=== PATIENT | female | born 1940 | race Caucasian/White ===

== ENCOUNTER 2024-05-11 12:48 | Outpatient (NON) | payer MEDICARE, SELFPAY ==
--- OUTSIDE RECORDS SUMMARY | 2024-05-11 13:11 | XMS_ITS | Encounter Summary ---
Author Organization [facility] Address [address] [place] [address] Phone Care Team Providers Care Rejected Items Clerk Name Role Phone Cherelle Knapp PAC Primary Care Pro vider Markell Obregon MD Unavailable [phone] Reason for Visit * Reason Comments Medication Refill Encounter Details Date Type Department Care Team (Late st Contact Info) Description 01/16/2023 Refill [facility] - Internal Medicine - [place] [address] [place] [phone] Cherelle Knapp, IMTIAZ [address] [place] [address] Medication Refill Social History Tobacco Use Types Packs/Day Years Used Date Smoking Tobacco: Former Smokeless Tobacco: Never Comments:Quit 60 years ago Alcohol Use Standard Drinks/Week Comments Yes 0 (1 standard drink = 0.6 oz pur e alcohol) rare PHQ-2 Answer Date Recorded Total Score - Questions 1-9 0 10/2021 Education Answer Date Recorded What is the highest level of school you have completed or the highest degree you have received? 12th grade 08/11/2022 Sexually Active Control Partners Comments Never Comments No Sex and Gender Information Value Date Recorded Sex Assigned at Not on file Legal Sex Female 12:25 AM CDT Gender Identity Not on file Sexual Orientation Not on file Occupation Industry Job Start Date Job End Date Retired Not on file Not on file Not on file documented as of this encounter Miscellaneous Notes * Telephone Encounter - Paula Morgan RN - 01/17/2023 8:38 AM CST Medication failed the protocol, provider to review and approve the medication order if appropriate. Requested Prescriptions Pending Prescriptions Disp Refills pravastatin (PRAVACHOL) 40 MG Tablet [Pharmacy Med Name: PRAVASTATIN SODIUM 40 MG TAB] 90 Tablet 0 Sig: TAKE 1 TABLET BY MOUTH EVERY DAY IN THE EVENING [facility]mg CoA Reductase Inhibitors Protocol Failed - 01/16/2023 7:16 AM Failed - CMP in past 12 months SODIUM Date Value Ref Range Status 08/13/2022 142 136 - 144 mmol/L Final POTASSIUM Date Value Ref Range Status 08/13/2022 4.3 3.5 - 5.1 mmol/L Final CHLORIDE Date Value Ref Range Status 08/13/2022 105 100 - 110 mmol/L Final CO2, VENOUS Date Value Ref Range Status 08/13/2022 26 22 - 32 mmol/L Final ANION GAP Date Value Ref Range Status 08/13/2022 15.3 8.0 - 20.0 mmol/L Final GLUCOSE Date Value Ref Range Status 08/13/2022 79 70 - 99 mg/dL Final BUN Date Value Ref Range Status 08/13/2022 18 8 - 23 mg/dL Final CREATININE, BLOOD Date Value Ref Range Status 08/13/2022 0.56 (L) 0.60 - 1.10 mg/dL Final BUN/CREATININE RATIO Date Value Ref Range Status 08/13/2022 32 (H) 12 - 20 ratio Final TOTAL PROTEIN Date Value Ref Range Status 08/13/2022 7.0 6.0 - 8.3 g/dL Final ALBUMIN Date Value Ref Range Status 08/13/2022 4.4 3.5 - 5.2 g/dL Final Comment: The colormetric methods used for the determination of Albumin may lead to falsely elevated test results in patients suffering from renal failure or insufficiency due to interference with other proteins. A/G RATIO Date Value Ref Range Status 08/13/2022 1.7 1.0 - 2.0 Final CALCIUM Date Value Ref Range Status 08/13/2022 9.4 8.9 - 10.3 mg/dL Final SGOT (AST) Date Value Ref Range Status 08/13/2022 31 <=32 U/L Final SGPT (ALT) Date Value Ref Range Status 08/13/2022 16 <=41 U/L Final ALKALINE PHOSPHATASE Date Value Ref Range Status 08/13/2022 71 35 - 105 U/L Final GFR, EST. NONAFRICAN Date Value Ref Range Status 08/13/2022 >60 >=60 Final GFR, EST. Date Value Ref Range Status 08/13/2022 >60 >=60 Final GFR, ESTIMATED Date Value Ref Range Status 08/13/2022 >60 >=60 Final Comment: Creatinine Clearance is the preferred criteria for selecting drug dose adjustments in renally impaired patients. The GFR is provided as additional pertinent clinical information. GFR is reported in mL/min/1.73 sq m. Calculation based on the Chronic Kidney Disease Epidemiology Collaboration (CKD- EPI) equation refitwithout adjustment for race. IS THE PATIENT REQUIRED TO BE FASTING? Date Value Ref Range Status 08/13/2022 No Final Passed - Visit with relevant provider in past 12 months or upcoming 90 days Recent Visits Date Type Provider Dept 08/13/22 Office Visit Cherelle Knapp, IMTIAZ [facility] [place] 02/12/22 Office Visit Cherelle Knapp, PAC [facility] [place] Showing recent visits within past 365 days and meeting all other requirements Future Appointments Date Type Provider Dept 02/11/23 Appointment Cherelle Knapp, IMTIAZ [facility] [place] Showing future appointments within next 90 days and meeting all other requirements Passed - Lipid panel in past 12 months LDL Date Value Ref Range Status 08/13/2022 106 5 - 130 mg/dL Final HDL CHOLESTEROL Date Value Ref Range Status 08/13/2022 67.3 >40 mg/dL Final CHOLESTEROL Date Value Ref Range Status 08/13/2022 190 <=200 mg/dL Final TRIGLYCERIDES Date Value Ref Range Status 08/13/2022 82 <150 mg/dL Final VLDL Date Value Ref Range Status 08/13/2022 16 5 - 55 mg/dL Final CHOL/HDL RATIO Date Value Ref Range Status 08/13/2022 2.8 0.0 - 4.4 Final NON-HDL CHOLESTEROL Date Value Ref Range Status 08/13/2022 122.7 <130 mg/dL Final RATORY CHEMICAL ASSISTANT documented in this encounter Plan of Treatment Upcoming Encounters Date Type Department Care Team (Late st Contact Info) Description 08/06/2024 8:30 AM CDT Office Visit [facility] - [facility] [address] [place] [address] Cherelle Knapp, PAC [address] [place] [address] 12/11/2024 9:30 AM CDT Office Visit [facility] Neurology [facility] [address] [place] [address] Markell Obregon MD [address] [place] [phone] documented as of this encounter Visit Diagnoses Not on filedocumented in this encounter Additional Health Concerns Assessment Noted Time PHQ-9 Depression Total Score: 0 08/07/19 21 8:00 AM CDT documented as of this encounter Care Teams Rejected Items Clerk Relationship Specialty Start Date End Date Cherelle Knapp, PAC [address] [place] [address] PCP - General Physician Gumming Machine Operator 12/15/16 Markell Obregon MD [address] [place] [address] Consulting Physician Neurology 12/07/21 documented as of this encounter
--- OUTSIDE RECORDS SUMMARY | 2024-05-11 13:11 | XMS_ITS | Referral Summary ---
Author Organization [facility] [address] [employer] [address] Address [address] [employer] [place] [address] Phone Care Team Providers Care Senior Business Manager Name Role Phone Cherelle Knapp Primary Care Prov ider Allergies No known active allergies Medications pravastatin (PRAVACHOL) 40 mg tablet take 1 tablet (40MG) by oral route every day 0 02/22/2012 Active calcium carbonate-vitami n D3 (CALTRATE 600 + D) 600 mg (1,500 mg)-800 unit tablet,chewable 1 po 2 x daily 0 0 04/12/2016 Active raloxifene (EVISTA) 60 mg tabletIndication s:Osteopenia of hip, unspecified laterality Take 1 tablet (60 mg total) by mouth daily 90 tablet 3 07/10/2018 Active ergocalciferol (VITAMIN D) 50,000 unit capsule TAKE ONE CAPSULE BY MOUTH EVERY 30 DAYS 3 capsule 4 07/13/2018 Active Active Problems Problem Noted Date Diagnosed Date Dyslipidemia 04/12/2023 Osteopenia 07/10/2018 Disorder of bone 06/13/2018 Low vitamin D level 06/13/2018 Age-related osteoporosis wit hout current pathological fracture 06/15/2017 Dizzy spells 06/15/2017 Social History Tobacco Use Types Packs/Day Years Used Date Smoking Tobacco: Former Smokeless Tobacco: Never Comments:Smoking History Pac ks/day: 0.5 Packs Alcohol Use Standard Drinks/Week Comments Yes 0 (1 standard drink = 0.6 oz pur e alcohol) Comments No Sex and Gender Information Value Date Recorded Sex Assigned at Not on file Legal Sex Female 3:59 PM DAIRY SUPPLIES SALES REPRESENTATIVE Gender Identity Not on file Sexual Orientation Not on file Occupation Industry Job Start Date Job End Date Retired Not on file Not on file Not on file Last Filed Vital Signs Vital Sign Reading Time Taken Comments Blood Pressure 128/83 04/12/2023 11:44 AM DAIRY SUPPLIES SALES REPRESENTATIVE Pulse 101 04/12/2023 11:44 AM DAIRY SUPPLIES SALES REPRESENTATIVE Temperature - - Respiratory Rate - - Oxygen Saturation 98% 04/12/2016 1:15 PM DAIRY SUPPLIES SALES REPRESENTATIVE Inhaled Oxygen Concentration - - Weight 60.2 kg (132 lb 12.8 oz) 024 11:44 AM DAIRY SUPPLIES SALES REPRESENTATIVE Height 156.2 cm (5' 1.5 ) 04/12/2023 11 :44 AM DAIRY SUPPLIES SALES REPRESENTATIVE Body Mass Index 24.69 04/12/2023 11:44 AM DAIRY SUPPLIES SALES REPRESENTATIVE Plan of Treatment Not on file Insurance MEDICARE [employer] SENIOR SUPPLEMENT MEDICARE [employer] SENIOR SUPPLEMENT Care Teams Senior Business Manager Relationship Specialty Start Date End Date Cherelle Knapp PA PCP - General Neurosurgery 07/10/18
--- OUTSIDE RECORDS SUMMARY | 2024-05-11 13:11 | XMS_ITS | Clinical Summary ---
Author Organization [facility] Address [address], [address] [address] Phone Care Team Providers Care Plaster Patternmaker Name Role Phone Cherelle Knapp Primary Care Pro vider Markell Obregon MD Unavailable [phone] Allergies No known active allergies Medications Calcium Carb-Cholecalci ferol (CALCIUM 600 + D PO) Take 600 mg by mouth 2 times daily. Active Multiple Vitamins-Minera ls (MULTIVITAMIN PO) Take 1 Tab by mouth daily. Active Ibuprofen (ADVIL PO) Take by mouth. As needed for bursitis OC Active raloxifene (EVISTA) 60 MG Tablet TAKE 1 TABLET BY MOUTH EVERY DAY IN THE MORNING 90 Tablet 3 08/22/2023 Active Apoaequorin (PREVAGEN PO) Take by mouth. Active pravastatin (PRAVACHOL) 40 MG Tablet Take 1 Tablet by mouth every evening. 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 Overview (02/11/2023): Followed by [facility]UR[facility] and eye doctor Disorder of bone 06/13/2018 Low vitamin D level 06/13/2018 Age-related osteoporosis wit hout current pathological fracture 06/15/2017 Dizzy spells 06/15/2017 Overview (02/11/2023): Dr Obregon follows Osteopenia Dyslipidemia Encounters Date Type Department Care Team Description 02/14/2024 Results Follow-Up [facility] - Internal Medicine - [place] [address] [place] [phone] Cherelle Knapp, PAC from Last 3 Months Immunizations Immunization Administration Dates Next Due Covid-19, Mrna, Lnp-s, Pf, Zeferino-sucrose, 30 Mcg/0.3 Ml (Pfizer) 11/26/2023,12/21/2022 Influenza Vaccine greater than 3 yrs 11/06/2019 Influenza Vaccine, Quadrivalent, PF 12/13/2017,1 Influenza, High-dose, Quadrivalent 12/07,11/23/2021,12/01/2020,12/01,11/06/2019 Influenza, high-dose, trivalent, PF 11/06,12/07/2022,11/06/2019,12/06,12/04/2018,12/10/2015,12/04/2014 PUR FLU HIGH DOSE (FLUZONE) 12/10/2015 PUR PCV-13 06/16/2016 Pneumococcal Vaccine - 13 Valent 06/16/2016 Pneumococcal Vaccine Adult - 23 Valent 0,03/07/2004 Pneumococcal conjugate PCV20 , polysaccharide [id number] conjugate, adjuvant, PF 08/13/2022 TD VACCINE 12/03/2013 Tetanus Toxoid, Unspecified Formulation 03/07/2000 Zoster Vaccine Recombinant 10/26/2022,07/28/2022 Zoster Vaccine, live 03/07/2008 Family History Medical History Relation Name Comments Gout Brother Cancer Father PROSTATE Cancer Maternal Aunt BREAST Cancer Mother BREAST Cancer Paternal Aunt COLON Relation Name Status Comments Brother Alive Father Maternal Aunt Mother Paternal Aunt Social History Tobacco Use Types Packs/Day Years Used Date Smoking Tobacco: Former Smokeless Tobacco: Never Tobacco Cessation:Counseling Given: No Comments:Quit 60 years ago Alcohol Use Standard Drinks/Week Comments Yes 0 (1 standard drink = 0.6 oz pur e alcohol) rare [facility] Utilities Answer Date Recorded In the past 12 months has th e electric, gas, oil, or water company threatened to shut off services in your home? No 07/08/2023 Social Connection and Isolat ion Panel [NHANES] Answer Date Recorded In a typical week, how many times do you talk on the phone with family, friends, or neighbors? More than three times a week 07/08/2023 How often do you get togethe r with friends or relatives? More than three times a week 07/08/2023 How often do you attend chur ch or temple services? More than 4 times per year 07/08/2023 Do you belong to any clubs o r organizations such as sikhism groups, unions, fraternal or athletic groups, or school groups? Yes 07/08/2023 How often do you attend meet ings of the clubs or organizations you belong to? More than 4 times per year 07/08/2023 Are you , , di vorced, , never , or living with a partner? 07/08/2023 AUDIT-C Answer Date Recorded Q1: How often do you have a drink containing alcohol? Never 07/08/2023 Q2: How many drinks containi ng alcohol do you have on a typical day when you are drinking? Patient does not drink Q3: How often do you have si x or more drinks on one occasion? Never 07/08/2023 Overall Financial Resource Strain (CARDIA) Answe r Date Recorded How hard is it for you to pa y for the very basics like food, housing, medical care, and heating? Not hard at all 07/08/2023 PHQ-2 Answer Date Recorded Total Score - Questions 1-9 0 01/06 [facility] - Occupational Stress Questionnaire Answer Date Recorded Do you feel stress - tense, restless, nervous, or anxious, or unable to sleep at night because your mind is troubled all the time - these days? Not at all 07/08/2023 Exercise Vital Sign Answer Date Recorde d On average, how many days pe r week do you engage in moderate to strenuous exercise (like a brisk walk)? 5 days 07/08/2023 On average, how many minutes do you engage in exercise at this level? 40 min 07/08/2023 Hunger Vital Sign Answer Date Recorded Within the past 12 months, y ou worried that your food would run out before you got the money to buy more. Never true 07/08/19 24 Within the past 12 months, t he food you bought just didn't last and you didn't have money to get more. Never true 07/08/2023 PRAPARE - Transportation Answer Date Re corded In the past 12 months, has l ack of transportation kept you from medical appointments or from getting medications? No 05/2023 In the past 12 months, has l ack of transportation kept you from meetings, work, or from getting things needed for daily living? No 07/08/2023 Housing Stability Vital Sign Answer Jaylon e Recorded In the last 12 months, was t here a time when you were not able to pay the mortgage or rent on time? No 07/08/2023 In the last 12 months, how many places have you lived? 1 07/08/2023 In the last 12 months, was t here a time when you did not have a steady place to sleep or slept in a mcfp (including now)? No 07/08/2023 Education Answer Date Recorded What is the [...] Sign Reading Time Taken Comments Blood Pressure 124/68 01/30/2024 8:29 AM DYNAMITE PACKING MACHINE FEEDER Pulse 62 01/30/2024 8:29 AM DYNAMITE PACKING MACHINE FEEDER Temperature 36.4 C (97.5 F) 01/30/2024 8:29 AM DYNAMITE PACKING MACHINE FEEDER Respiratory Rate 12 01/30/2024 8:29 AM DYNAMITE PACKING MACHINE FEEDER Oxygen Saturation 97% 01/30/2024 8:29 AM DYNAMITE PACKING MACHINE FEEDER Inhaled Oxygen Concentration - - Weight 60.8 kg (134 lb) 01/30/2024 8:29 AM DYNAMITE PACKING MACHINE FEEDER Height 157.5 cm (5' 2 ) 12/13/2023 9:32 AM CDT Body Mass Index 24.51 12/13/2023 9:32 AM CDT Plan of Treatment Upcoming Encounters Date Type Department Care Team (Late st Contact Info) Description 08/06/2024 8:30 AM CDT [facility] [place] [address] [facility] [phone] Cherelle Knapp, [facility] [address] [place] [address] 12/11/2024 9:30 AM CDT Office Visit [facility] - Neurology - [place] [address] [place] [phone] Markell Obregon MD [address] [place] [address] Health Maintenance Due Date Last Done Comments Hepatitis C Virus (HCV) Screening 1940 TdaP Immunization 1940 Respiratory Syncytial Virus (RSV) Immunization (Adult) (1 - 1-dose 75+ series) 2017 SARS-COV-2 Immunization ( season) 2024 11/26/2023, 12/21/2022, 02/03/2022, Additional history exists DEXA Bone Density 10/26/2024 10/26/2022, , 06/19/2018 Pneumococcal Immunization (50+ years) Completed 08/13/2022, 08/06/2019, 06/16/2016, Additional history exists Pneumococcal Immunization Combined Discontinued 08/13/2022, 08/06/2019, 06/16/2016, Additional history exists Zoster Immunization Completed 10/26/2022, 07/28/2022, 03/07/2008 Influenza Immunization Completed , 12/07/2022, 12/07/2022, Additional history exists Hepatitis B Immunization Aged Out No longer eligible based on patient's age to complete this topic Meningococcal Immunization (ACWY) Aged Out No longer eligible based on patient's age to complete this topic Rotavirus Immunization Aged Out No lo nger eligible based on patient's age to complete this topic Procedures Procedure Name Priority Date/Time Associated Diagnosis Comments [facility] BONE DENSITOMETRY AXIAL SKELETON Routine 10/26/2022 9:15 AM CDT Osteopenia, unspecified location Medication monitoring encounter Asymptomatic menopausal state from Last 3 Months or Most Recently Relevant to Health Maintenance Results * [facility] BONE DENSITOMETRY AXIAL SKELETON (10/26/2022 9:15 AM CDT) Anatomical Region Laterality Modality BODY N/A Computed Radiogr aphy 10/27/2022 4:54 PM CDT Impressions 10/27/2022 4:57 PM CDT IMPRESSION: Low Bone Mass. REFERENCE: Bone mineral density: Normal (T-score above or = -1.0) Low bone mass (T-score between -1.0 and -2.5) replaces the previously used term osteopenia Osteoporosis (T-score = or below -2.5) Medical evaluation for secondary causes of low bone mineral density may be appropriate. FRAX is a World Health Organization validated fracture risk assessment tool that calculates a person's 10 year probability of a major osteoporosis related fracture and hip fracture. According to the National Osteoporosis Foundation guidelines, postmenopausal women and men age 50 or older with low bone mass and a 10 year probability of a major osteoporosis related fracture = or greater than 20% or a 10 year probability of a hip fracture = or greater than 3% should be considered for treatment. For further information, including treatment recommendations, please refer to the 2019 ISCD Official Positions (http://www.iscd.org) and the NOF's Clinician's Guide to Prevention and Treatment of Osteoporosis (http://www.nof.org/professionals/clinical-guidelines) Narrative 10/27/2022 4:57 PM CDT EXAM DESCRIPTION: [facility] BONE DENSITOMETRY AXIAL SKELETON REASON FOR STUDY: 81 y/o year old F with given history of: Osteopenia, unspecified location, Medication monitoring encounter, Asymptomatic menopausal state [employer] Sales Representative/Model: WirelessGate (S/N [id number]) CLINICAL INFORMATION: Current height: 62 inches Maximum height: 64 inches Weight: 130 pounds Risk factors: Postmenopausal, adult fracture COMPARISON: 08/19/2020, 06/19/2028, 05/19/2012 FINDINGS: AP LUMBAR SPINE L1-L4: Total BMD is 1.328 g/cm2 T-score is 1.1 This is increased in comparison to prior exam which is not statistically significant. LEFT HIP: Total BMD is 0.794 g/cm2 T-score is -1.7 This is decreased in comparison to prior exam which is not statistically significant. Femoral neck BMD is 0.738 g/cm2 T-score is -2.2 FRAX: 10 year risk for a major osteoporotic fracture is 40.2 %, 10 year risk for a hip fracture is 26.1 % THIS IS AN ELECTRONICALLY VERIFIED FINAL REPORT 10/27/2022 4:54 PM - Electronically signed by Stephane Arceo M.D. MF: [id number] Report ID: [id number] Reading Location: [place] [address] Procedure Note Stephane Arceo MD - 10/27/2022 EXAM DESCRIPTION: [facility] BONE DENSITOMETRY AXIAL SKELETON REASON FOR STUDY: 81 y/o year old F with given history of: Osteopenia, unspecified location, Medication monitoring encounter, Asymptomatic menopausal state [employer] Sales Representative/Model: WirelessGate (S/N [id number]) CLINICAL INFORMATION: Current height: 62 inches Maximum height: 64 inches Weight: 130 pounds Risk factors: Postmenopausal, adult fracture COMPARISON: 08/19/2020, 06/19/2028, 05/19/2012 FINDINGS: AP LUMBAR SPINE L1-L4: Total BMD is 1.328 g/cm2 T-score is 1.1 This is increased in comparison to prior exam which is not statistically significant. LEFT HIP: Total BMD is 0.794 g/cm2 T-score is -1.7 This is decreased in comparison to prior exam which is not statistically significant. Femoral neck BMD is 0.738 g/cm2 T-score is -2.2 FRAX: 10 year risk for a major osteoporotic fracture is 40.2 %, 10 year risk for a hip fracture is 26.1 % THIS IS AN ELECTRONICALLY VERIFIED FINAL REPORT 10/27/2022 4:54 PM - Electronically signed by Stephane Arceo M.D. MF: [id number] Report ID: [id number] Reading Location: [id number] IMPRESSION: Low Bone Mass. REFERENCE: Bone mineral density: Normal (T-score above or = -1.0) Low bone mass (T-score between -1.0 and -2.5) replaces the previously used term osteopenia Osteoporosis (T-score = or below -2.5) Medical evaluation for secondary causes of low bone mineral density may be appropriate. FRAX is a World Health Organization validated fracture risk assessment tool that calculates a person's 10 year probability of a major osteoporosis related fracture and hip fracture. According to the National Osteoporosis Foundation guidelines, postmenopausal women and men age 50 or older with low bone mass and a 10 year probability of a major osteoporosis related fracture = or greater than 20% or a 10 year probability of a hip fracture = or greater than 3% should be considered for treatment. For further information, including treatment recommendations, please refer to the 2019 ISCD Official Positions (http://www.iscd.org) and the NOF's Clinician's Guide to Prevention and Treatment of Osteoporosis (http://www.nof.org/professionals/clinical-guidelines) Cherelle Knapp [facility] IMG DEXA ORDERABL ES Final Result from Last 3 Months or Most Recently Relevant to Health Maintenance Insurance MEDICARE [facility] [address] Care Teams Plaster Patternmaker Relationship Specialty Start Date End Date Cherelle Knapp, IMTIAZ [address] [place] [address] PCP - General Physician Paper Sealer 12/15/16 Markell Obregon MD [address] [place] [address] Consulting Physician Neurology 12/07/21
--- OUTSIDE RECORDS SUMMARY | 2024-05-11 13:11 | XMS_ITS | Encounter Summary ---
Author Organization [facility] Address [address] [place] [address] Phone Care Team Providers Care Central Supply Tech Name Role Phone Cherelle Knapp PAC Primary Care Pro vider Markell Obregon MD Unavailable [phone] Reason for Visit * Reason Comments Medication Refill Encounter Details Date Type Department Care Team (Late st Contact Info) Description 08/10/2023 [facility]ill [facility] - [place] [address] [place] [address] Cherelle Knapp, IMTIAZ [address] [facility] [address] Medication Refill Social History Tobacco Use Types Packs/Day Years Used Date Smoking Tobacco: Former Smokeless Tobacco: Never Comments:Quit 60 years ago Alcohol Use Standard Drinks/Week Comments Yes 0 (1 standard drink = 0.6 oz pur e alcohol) rare [facility] Utilities Answer Date Recorded In the past 12 months has [employer], gas, oil, or water company threatened to [...] often do you attend chur ch or moravian services? More than 4 times per year 07/08/2023 Do you belong to any clubs o r organizations such as moravian groups, unions, fraternal or athletic groups, or [...] Recorded Total Score - Questions 1-9 0 /0 10/2021 [facility] of Occupat ional Health - Occupational Stress [...] place to sleep or slept in a alf (including now)? No 07/08/2023 Education Answer Date [...] Telephone Encounter - Paula Morgan RN - 08/10/2023 8:43 AM CDT Medication(s) refilled and signed per [facility] Chronic Medication Refill Standing Order for Pediatricand Adult Patients. Requested Prescriptions Pending Prescriptions Disp Refills pravastatin (PRAVACHOL) 40 MG Tablet [Pharmacy Med Name: PRAVASTATIN SODIUM 40 MG TAB] 90 Tablet 0 Sig: TAKE 1 TABLET BY MOUTH EVERY DAY IN THE EVENING Hmg CoA Reductase Inhibitors Protocol Passed - 08/10/2023 12:07 AM Passed - Visit with relevant provider in past 12 months or upcoming 90 days Recent Visits Date Type Provider Dept 07/08/23 Office Visit Cherelle Knapp PAC [facility] [place] 02/11/23 Office Visit Cherelle Knapp, IMTIAZ [facility] [place] 08/13/22 Office Visit Cherelle Knapp PAC [facility] [place] Showing recent visits within past 365 days and meeting all other requirements Future Appointments No visits were found meeting these conditions. Showing future appointments within next 90 days and meeting all other requirements Passed - Lipid panel in past 12 months LDL Date Value Ref Range Status 07/08/2023 94 <130 mg/dL Final HDL CHOLESTEROL Date Value Ref Range Status 07/08/2023 60 >40 mg/dL Final CHOLESTEROL Date Value Ref Range Status 07/08/2023 169 <200 mg/dL Final TRIGLYCERIDES Date Value Ref Range Status 07/08/2023 75 <150 mg/dL Final VLDL Date Value Ref Range Status 07/08/2023 15 10 - 50 mg/dL Final CHOL/HDL RATIO Date Value Ref Range Status 07/08/2023 2.8 0.0 - 4.4 Final NON-HDL CHOLESTEROL Date Value Ref Range Status 07/08/2023 109 <130 mg/dL Final Passed - CMP in past 12 months SODIUM Date Value Ref Range Status 07/08/2023 143 136 - 145 mmol/L Final POTASSIUM Date Value Ref Range Status 07/08/2023 4.7 3.5 - 5.1 mmol/L Final CHLORIDE Date Value Ref Range Status 07/08/2023 109 (H) 98 - 107 mmol/L Final CO2, VENOUS Date Value Ref Range Status 07/08/2023 23 22 - 30 mmol/L Final ANION GAP Date Value Ref Range Status 07/08/2023 15.7 <18.0 mmol/L Final GLUCOSE Date Value Ref Range Status 07/08/2023 93 70 - 99 mg/dL Final BUN Date Value Ref Range Status 07/08/2023 16 10 - 20 mg/dL Final CREATININE, BLOOD Date Value Ref Range Status 07/08/2023 0.73 0.60 - 1.00 mg/dL Final BUN/CREATININE RATIO Date Value Ref Range Status 07/08/2023 22 (H) 12 - 20 ratio Final TOTAL PROTEIN Date Value Ref Range Status 07/08/2023 6.5 6.3 - 8.2 g/dL Final ALBUMIN Date Value Ref Range Status 07/08/2023 3.9 3.5 - 5.0 g/dL Final A/G RATIO Date Value Ref Range Status 07/08/2023 1.5 1.0 - 2.2 Final CALCIUM Date Value Ref Range Status 07/08/2023 8.9 8.7 - 10.5 mg/dL Final T BILI Date Value Ref Range Status 07/08/2023 0.4 0.2 - 1.2 mg/dL Final SGOT (AST) Date Value Ref Range Status 07/08/2023 28 5 - 34 U/L Final SGPT (ALT) Date Value Ref Range Status 07/08/2023 19 0 - 55 U/L Final ALKALINE PHOSPHATASE Date Value Ref Range Status 07/08/2023 54 40 - 150 U/L Final GFR, EST. NONAFRICAN Date Value Ref Range Status 07/08/2023 >60 >=60 Final GFR, EST. Date Value Ref Range Status 07/08/2023 >60 >=60 Final GFR, ESTIMATED Date Value Ref Range Status 07/08/2023 >60 >=60 Final Comment: Creatinine Clearance is the preferred criteria for selecting drug dose adjustments in renally impaired patients. The GFR is provided as additional pertinent clinical information. GFR is reported in mL/min/1.73 sq m. Calculation based on the Chronic Kidney Disease Epidemiology Collaboration (CKD- EPI) equation refitwithout adjustment for race. IS THE PATIENT REQUIRED TO BE FASTING? Date Value Ref Range Status 07/08/2023 No Final documented in this encounter Plan of Treatment Upcoming Encounters Date Type Department Care Team (Late st Contact Info) Description 08/06/2024 8:30 AM CDT Office Visit [facility] Medical [facility] - Internal Medicine [facility] [address] [place] [phone] Cherelle Knapp, [facility] [address] [place] [address] 12/11/2024 9:30 AM CDT [facility] [address] [place] [address] Markell Obregon MD [address] [place] [phone] documented as of this encounter Visit Diagnoses Not on filedocumented in this encounter Additional Health Concerns Assessment Noted Time PHQ-9 Depression Total Score: 0 08/07/19 21 8:00 AM CDT documented as of this encounter Care Teams Central Supply Tech Relationship Specialty Start Date End Date Cherelle Knapp, IMTIAZ [address] [place] [address] PCP - General Physician Fur Ironer 12/15/16 Markell Obregon MD [address] [place] [phone] Consulting Physician Neurology 12/07/21 documented as of this encounter
--- OUTSIDE RECORDS SUMMARY | 2024-05-11 13:11 | XMS_ITS | Encounter Summary ---
Author Organization [facility] Address [address] [place] [address] Phone Care Team Providers Care Medical Assistant Float Name Role Phone Cherelle Knapp PAC Primary Care Pro vider Markell Obregon MD Unavailable [phone] Reason for Visit * Reason Comments Medication Refill Encounter Details Date Type Department Care Team (Late st Contact Info) Description 08/20/2023 Refill [facility] - [place] [address] [place] [address] Cherelle Knapp, IMTIAZ [address] [facility] [place] [address] Medication Refill Social History Tobacco Use Types Packs/Day Years Used Date Smoking Tobacco: Former Smokeless Tobacco: Never Comments:Quit 60 years ago Alcohol Use Standard Drinks/Week Comments Yes 0 (1 standard drink = 0.6 oz pur e alcohol) rare [facility] Utilities Answer Date Recorded In the past 12 months has [employer], gas, oil, or water company threatened to [...] often do you attend chur ch or jain services? More than 4 times per year 07/08/2023 Do you belong to any clubs o r organizations such as scientologist groups, unions, fraternal or athletic groups, or [...] Score - Questions 1-9 0 /0 10/2021 [facility] of Occupat ional Health - Occupational [...] place to sleep or slept in a chcf (including now)? No 07/08/2023 Education Answer Date [...] Telephone Encounter - Paula Morgan RN - 08/22/2023 9:21 AM CDT Medication failed the protocol, provider to review and approve the medication order if appropriate. Requested Prescriptions Pending Prescriptions Disp Refills raloxifene (EVISTA) 60 MG Tablet [Pharmacy Med Name: RALOXIFENE HCL 60 MG TABLET] 90 Tablet 3 Sig: TAKE 1 TABLET BY MOUTH EVERY DAY IN THE MORNING Not Delegated - Hormone Receptor Modulators Protocol Failed - 08/20/2023 7:10 AM Failed - This refill cannot be delegated Passed - Visit with relevant provider in past 12 months or upcoming 90 days Recent Visits Date Type Provider Dept 07/08/23 Office Visit Cherelle Knapp PAC [facility] [place] 02/11/23 Office Visit Cherelle Knapp, IMTIAZ [facility] [place] Showing recent visits within past 365 days and meeting all other requirements Future Appointments No visits were found meeting these conditions. Showing future appointments within next 90 days and meeting all other requirements documented in this encounter Plan of Treatment Upcoming Encounters Date Type Department Care Team (Late st Contact Info) Description 08/06/2024 8:30 AM CDT Office Visit [facility] - Internal Medicine - [place] [address] [place] [phone] Cherelle Knapp, PAC [address] [place] [address] 12/11/2024 9:30 AM CDT Office Visit [facility] - Neurology [facility] [address] [place] [phone] Markell Obregon MD [address] [place] [address] documented as of this encounter Visit Diagnoses Not on filedocumented in this encounter Additional Health Concerns Assessment Noted Time PHQ-9 Depression Total Score: 0 08/07/19 21 8:00 AM CDT documented as of this encounter Care Teams Medical Assistant Float Relationship Specialty Start Date End Date Cherelle Knapp, PAC [address] [place] [address] PCP - General Physician Can Washer 12/15/16 Markell Obregon MD [address] [place] [address] Consulting Physician Neurology 12/07/21 documented as of this encounter
--- OUTSIDE RECORDS SUMMARY | 2024-05-11 13:11 | XMS_ITS | Clinical Summary ---
Author Organization [facility] [address] Address [address] [place] [address] Phone Care Team Providers Care Yarding Supervisor Name Role Phone Cherelle Knapp Primary Care [...] current pathological fracture 06/15/2017 Dizzy spells 06/15/2017 Surgical History Surgery Date Site/Laterality Comments OTHER SURGICAL HISTORY Osteopenia (prior osteoporosis): Evista and Vitamin D monthly OTHER SURGICAL HISTORY 1946 Tonsillitis: tonsillectomy Medical History Medical History Date Comments Hypercholesterolemia High choles terol Hx Other Medical Osteopenia (santi or osteoporosis) Tonsillitis 194 Tonsillitis Family History Medical History Relation Name Comments Heart failure Father CHF; Cause of : CHF Prostate cancer Father Cancer, pros patel; Breast cancer Father's Sister 1 Cancer, b reast; Colon cancer Father's Sister 2 Cancer, co alex; Breast cancer Mother Cancer, breast ; Cause of : Cancer, breast Breast cancer Mother's Sister Cancer, ashia ast; Relation Name Status Comments Father (Age 84) Father's Sister 1 Father's Sister 2 Mother (Age 61) Mother's Sister Social History Tobacco Use Types Packs/Day Years Used Date Smoking Tobacco: Former Smokeless Tobacco: Never Comments:Smoking History Pac ks/day: 0.5 Packs Alcohol Use Standard Drinks/Week Comments Yes 0 (1 standard drink = 0.6 oz pur e alcohol) Comments No Sex and Gender Information Value Date Recorded Sex Assigned at Not on file Legal Sex Female 3:59 PM [employer] Gender Identity Not on file Sexual Orientation Not on file Occupation Industry Job Start Date Job End Date Retired Not on file Not on file Not on file Obstetrics History Para Term AB IAB SAB Ectopic Multiple Livin g Live Births 2 2 2 0 0 2 Date Outcome GA Total Labor Labor/2nd/3rd Weight Sex Type Anes PTL Eufemia A1 A5 Name Clin Term Term Last Filed Vital Signs Vital Sign Reading Time Taken Comments Blood Pressure 128/83 04/12/2023 11:44 AM [employer] Pulse 101 04/12/2023 11:44 AM [employer] Temperature - - Respiratory Rate - - Oxygen Saturation 98% 04/12/2016 1:15 PM [employer] Inhaled Oxygen Concentration - - Weight 60.2 kg (132 lb 12.8 oz) 024 11:44 AM [employer] Height 156.2 cm (5' 1.5 ) 04/12/2023 11 :44 AM [employer] Body Mass Index 24.69 04/12/2023 11:44 AM [employer] Plan of Treatment Health Maintenance Due Date Last Done Comments Depression Screening 1942 Fall Risk Assessment 1942 Hepatitis B Screening 1960 Well Visit 65+ 12/01/2007 DTaP/Tdap/Td Vaccine (1 - Tdap) 12/04/2013 4 Influenza Vaccine (#1) 2023 3, 11/06/2019, 11/06/2019, Additional history exists Osteoporosis Screening-Bone Density Scan 10/26/2024 10/26/2022, 08/19/2020, 06/19/2018 Pneumococcal vaccine 65+ Completed 020, 06/16/2016, 03/07/2004 Zoster Vaccine Completed 10/26/2022, 07/06, 03/07/2008 Insurance MEDICARE [employer] SENIOR SUPPLEMENT MEDICARE [employer] SENIOR SUPPLEMENT Care Teams Yarding Supervisor Relationship Specialty Start Date End Date Cherelle Knapp PA PCP - General Neurosurgery 07/10/18
--- OUTSIDE RECORDS SUMMARY | 2024-05-11 13:11 | XMS_ITS | Encounter Summary ---
Author Organization [facility] Address [address] [place] [address] Phone Care Team Providers Care Coffee Taster Name Role Phone Cherelle Knapp PAC Primary Care Pro vider Markell Obregon MD Unavailable [phone] Reason for Visit * Reason Comments Medication Refill Encounter Details Date Type Department Care Team (Late st Contact Info) Description 08/23/2022 Refill [facility] - [place] [address] [place] [phone] Cherelle Knapp PAC [address] [place] [address] Medication Refill Social History Tobacco Use Types [...] file Not on file Not on file COVID-19 Exposure Response Date Recorded In the last 10 days, have yo u been in contact with someone who was confirmed or suspected to have Coronavirus/COVID-19? No / Unsure 08/13/2022 8:03 AM CDT documented as of this encounter Miscellaneous Notes * Telephone Encounter - Brooklyn Mireles RN - 08/24/2022 8:12 AM CDT Medication failed the protocol, provider to review and approve the medication order if appropriate. Requested Prescriptions Pending Prescriptions Disp Refills raloxifene (EVISTA) 60 MG Tablet [Pharmacy Med Name: RALOXIFENE HCL 60 MG TABLET] 90 Tablet 3 Sig: TAKE 1 TABLET BY MOUTH EVERY DAY IN THE MORNING Not Delegated - Hormone Receptor Modulators Protocol Failed - 08/23/2022 3:29 PM Failed - This refill cannot be delegated Passed - Visit with relevant provider in past 12 months or upcoming 90 days Recent Visits Date Type Provider Dept 08/13/22 Office Visit Cherelle Knapp PAC [facility] [place] 02/12/22 Office Visit Cherelle Knapp, IMTIAZ [facility] [place] 12/10/21 Office Visit Cherelle Knapp, PAC [facility] [place] Showing recent visits within past 365 days and meeting all other requirements Future Appointments No visits were found meeting these conditions. Showing future appointments within next 90 days and meeting all other requirements documented in this encounter Plan of Treatment Upcoming Encounters Date Type Department Care Team (Late st Contact Info) Description 08/06/2024 8:30 AM CDT Office Visit [facility] - Internal Medicine - [place] [address] [place] [phone] Cherelle Knapp PAC [address] [place] [address] 12/11/2024 9:30 AM CDT Office Visit [facility] - Neurology [facility] [address] [facility] [place] [address] Markell Obregon MD [address] [place] [address] documented as of this encounter Visit Diagnoses Not on filedocumented in this encounter Additional Health Concerns Assessment Noted Time PHQ-9 Depression Total Score: 0 08/07/19 21 8:00 AM CDT documented as of this encounter Care Teams Coffee Taster Relationship Specialty Start Date End Date Cherelle Knapp, [facility] [address] [place] [address] PCP - General Physician Citrus Fruit Colorer 12/15/16 Markell Obregon MD [address] [place] [address] Consulting Physician Neurology 12/07/21 documented as of this encounter
--- OUTSIDE RECORDS SUMMARY | 2024-05-11 13:11 | XMS_ITS | Encounter Summary ---
Author Organization [facility] Address [address] [place] [address] Phone Care Team Providers Care Heel Slugger Name Role Phone Cherelle Knapp PAC Primary Care Pro vider Markell Obregon MD Unavailable [phone] Reason for Visit * Reason Comments Medication Refill Encounter Details Date Type Department Care Team (Late st Contact Info) Description 08/07/2021 Refill [facility] - [facility] - [place] [address] [place] [phone] Cherelle Knapp, [facility] [address] [facility] [place] [address] Medication Refill Social History Tobacco Use Types Packs/Day Years Used Date Smoking Tobacco: Former Smokeless Tobacco: Never Comments:Quit 60 years ago Alcohol Use Standard Drinks/Week Comments Yes 0 (1 standard drink = 0.6 oz pur e alcohol) rare PHQ-2 Answer Date Recorded Total Score - Questions 1-9 0 04/2020 Sexually Active Control Partners Comments Never Comments [...] encounter Miscellaneous Notes * Telephone Encounter - Margarita Valera RN - 08/07/2021 10:31 AM CDT Medication failed the protocol, provider to review and approve the medication order if appropriate. Requested Prescriptions Pending Prescriptions Disp Refills raloxifene (EVISTA) 60 MG Tablet [Pharmacy Med Name: RALOXIFENE HCL 60 MG TABLET] 90 Tablet 3 Sig: Take 1 Tablet by mouth every morning. Not Delegated - Hormone Receptor Modulators Protocol Failed - 08/07/2021 12:28 AM Failed - This refill cannot be delegated Passed - Visit with relevant provider in past 12 months or upcoming 90 days Recent Visits No visits were found meeting these conditions. Showing recent visits within past 365 days and meeting all other requirements Future Appointments Date Type Provider Dept 08/12/21 Appointment Cherelle Knapp PAC [facility] Showing future appointments within next 90 days and meeting all other requirements documented in this encounter Plan of Treatment Upcoming Encounters Date Type Department Care Team (Late st Contact Info) Description 08/06/2024 8:30 AM CDT Office Visit [facility] Medical [facility] - Internal Medicine - [place] [address] [place] [address] Cherelle Knapp PAC [address] [facility] [address] 12/11/2024 9:30 AM CDT [facility] - Neurology [facility] [address] [place] [phone] Markell Obregon MD [address] [place] [phone] documented as of this encounter Visit Diagnoses Not on filedocumented in this encounter Additional Health Concerns Infection Onset Date Last Indicated Resolved Time COVID - 19 12/10/2021 12/10/2021 12/20/2021 12:1 6 AM CDT Assessment Noted Time PHQ-9 Depression Total Score: 0 08/07/19 21 8:00 AM CDT documented as of this encounter Care Teams Heel Slugger Relationship Specialty Start Date End Date Cherelle Knapp, IMTIAZ [address] [place] [address] PCP - General Physician Beauty Culturist 12/15/16 Markell Obregon MD [address] [place] [phone] Consulting Physician Neurology 12/07/21 documented as of this encounter
== END 2024-05-11 12:49 | disposition home or self-care (01) ==
LOC: ANHLAB 12:52
PROVIDERS: Visit Provider Plastic Surgery
DX: C44.92 Squamous cell carcinoma of skin, unspecified (principal)
CPT/HCPCS: 88305